=== PATIENT | female | born 1975 | race Hispanic/Latino ===

== ENCOUNTER 2018-06-28 08:50 | Outpatient (CLI) | payer OTHER ==
--- NOTE | 2018-06-28 10:30 | CT ---
CT CHEST WITH IV CONTRAST: Technique: Multiple contiguous axial images were obtained through the chest with IV enhancement. Indications: Left axillary pain and palpable nodule. Follow up to a left axillary ultrasound performe d 06-15-18 which revealed small axillary lymph nodes which were indeterminate by ultrasound measuring up to 1.7 cm. FINDINGS: The lung garcia are clear. No infiltrate or effusion. The mediastinum is unremarkable with no evidence of adenopathy. Thyroid appears unremarkable. Review of the axillary regions show bilateral nonspecific axillary lymph nodes. Several of these lymp h nodes are mildly prominent measuring up to 1.6 to 1.7 cm in the left axilla. Fatty hilum are seen i n all of these lymph nodes with no evidence of pathologic adenopathy. Breast parenchyma appears symme tric and unremarkable by CT. Images through the upper abdomen unremarkable. Post cholecystectomy changes noted. Osseous structures unremarkable. IMPRESSION: 1. There are nonspecific axillary lymph nodes noted bilaterally. The largest in the left measures up to 1.7 cm. These lymph nodes all show fatty hilum by CT with no evidence of pathologic adenopathy. 2. CT chest otherwise unremarkable. POS: [facility]
[2018-06-28] MEDS ORDERED: Iopamidol 370 76% 100 ML VIAL ONE ×2 (12:04→12:09)
== END 2018-06-28 08:51 | disposition home or self-care (01) ==
LOC: NAV CT 08:50
PROVIDERS: ATTEND Nurse Practitioner Family
DX: M79.622 Pain in left upper arm (principal)
CPT/HCPCS: 71260

== ENCOUNTER 2022-12-02 09:13 | Outpatient (CLI) | payer OTHER | END 2022-12-02 09:14 | disposition home or self-care (01) | LOC: NAV RAD 09:13 | PROVIDERS: ATTEND Nurse Practitioner Family | DX: M25.511 Pain in right shoulder (principal) ==

== ENCOUNTER 2025-04-21 09:56 | Outpatient (CLI) | payer OTHER | END 2025-04-21 09:57 | disposition home or self-care (01) | LOC: NAV RAD 09:56 | PROVIDERS: ATTEND Nurse Practitioner Family | DX: Z04.3 Encounter for examination and observation following other accident (principal); W19.XXXA Unspecified fall, initial encounter | CPT/HCPCS: 70450 ==